=== PATIENT | female | born 1970 | race Caucasian/White ===

== ENCOUNTER 2018-11-15 01:39 | Inpatient (IN) | payer MEDICAID ==
[~2018-11-15] VITALS: Ht 172.7 cm; Wt 86.4 kg
--- NOTE | 2018-11-15 01:53 | NUR ---
Call placed to poison control, spoke with "Melba", recommended fluids, glucagon if needed, EKG, toxicology, 6 hours of observation from time of ingestions
--- NOTE | 2018-11-15 02:00 | NUR ---
Mother of the patient called the ER and stated that in addition to atenolol, patient took 10# 50mg Trazodone, and "left a suicide note" Addendum: 11/15/18 at 0201 by SACHIN endorsed to ERP
[2018-11-15] MEDS ORDERED: ATEN-169 PO (02:03)
[2018-11-15 02:49] LABS: URINE HCG NEGATIVE (NEG)
[2018-11-15 03:01] LABS: URINE AMPHETAMINE SCREEN NEGATIVE (Neg); URINE BARBITUATE SCREEN NEGATIVE (Neg); URINE BENZODIAZEPINES SCREEN NEGATIVE (Neg); URINE CANNABINOID SCREEN POSITIVE (Neg); URINE COCAINE SCREEN NEGATIVE (Neg); URINE METHADONE SCREEN NEGATIVE (Neg); URINE OPIATE SCREEN NEGATIVE (Neg); URINE PHENCYCLIDINE SCREEN NEGATIVE (Neg)
[2018-11-15 03:05] LABS: CLARITY,URINE CLEAR (Clear); COLOR,URINE YELLOW (Yellow); GLUCOSE, URINE NEGATIVE (Neg); KETONES,URINE NEGATIVE (Neg); LEUKOCYTE ESTERASE ,URINE NEGATIVE (Neg); NITRITES, URINE NEGATIVE (Neg); OCCULT BLOOD,URINE TRACE-INTACT (Neg); PROTEIN,URINE NEGATIVE (Neg); UROBILINOGEN,URINE 0.2 E.U/dL (0.2-1.0)
[2018-11-15 03:11] LABS: UA COLLECTION TYPE CLN CATCH MIDSTREAM
[2018-11-15 03:12] LABS: BACTERIA,URINE NONE SEEN /HPF (Neg); RBC,URINE 0-2 /HPF (0-2); SQUAMOUS EPITHELIAL CELL,UR FEW /LPF (FEW); WBC,URINE NONE SEEN /HPF (0-4)
[2018-11-15] MEDS ORDERED: normal saline 1000ml 1,000 ML IV ONE ×2 (03:15→04:25)
[2018-11-15 03:18] LABS: BASOPHILS % (AUTO) 0.6 % (0-1); EOSINOPHILS # (AUTO) 0.1 X10'3 (0-0.9); EOSINOPHILS % (AUTO) 2.1 % (0-6); HEMATOCRIT 36.8 % (35.0-45.0); HEMOGLOBIN 12.4 g/dl (12.0-16.0); LYMPHOCYTES # (AUTO) 1.4 X10'3 (1.1-4.8); LYMPHOCYTES % (AUTO) 35.8 % (21-51); MEAN CORPUSCULAR HEMOGLOBIN 32.9 PG (27.0-31.0); MEAN CORPUSCULAR HGB CONC 33.6 % (33.0-36.5); MEAN CORPUSCULAR VOLUME 97.8 FL (78-98); MONOCYTES # (AUTO) 0.3 X10'3 (0-0.9); MONOCYTES % (AUTO) 8.1 % (2-12); NEUTROPHILS # (AUTO) 2.2 X10'3 (1.8-7.7); NEUTROPHILS % (AUTO) 53.4 % (42-75); PLATELET COUNT 70 X10'3 (140-440); RED BLOOD COUNT 3.76 X10'6 (4.20-5.60); RED CELL DISTRIBUTION WIDTH 13.9 % (11.5-14.5)
[2018-11-15 03:49] LABS: ALANINE AMINOTRANSFERASE 32 U/L (12-78); ALBUMIN 3.1 G/DL (3.4-5.0); ALBUMIN/GLOBULIN RATIO 0.6 (1.1-1.5); ALKALINE PHOSPHATASE 114 IU/L (46-116); ANION GAP 13 (8-16); ASPARTATE AMINO TRANSFERASE 67 U/L (10-37); BILIRUBIN,TOTAL 1.5 MG/DL (0.1-1.0); BLOOD UREA NITROGEN 10 MG/DL (7-18); BUN/CREATININE RATIO 14.9 (6.6-38.0); CALCIUM 8.2 MG/DL (8.5-10.1); CHLORIDE 102 MMOL/L (99-107); CREATININE 0.67 MG/DL (0.40-0.90); ETHANOL 0.179 GM/DL (0.0-0.010); GLUCOSE 106 MG/DL (70-104); POTASSIUM 3.3 MMOL/L (3.5-5.1); SODIUM 138 MMOL/L (135-145); TOTAL CARBON DIOXIDE 22.7 MMOL/L (24-32); eGFR > 90 ML/MIN
[2018-11-15 03:56] LABS: ACETAMINOPHEN < 2.0 UG/ML (10-30)
--- NOTE | 2018-11-15 04:23 | NUR ---
ERP informed that fluids finished, and current assessment and vitals
[2018-11-15] MEDS ORDERED: glucagon, human recombinant 20 MG in dextrose 5%-water 180 ML IV SCH ×4 (04:35→06:45)
[2018-11-15] MEDS ORDERED: ondansetron/PF 4mg/2ml inj IV ONE (04:35)
[2018-11-15] MEDS ORDERED: calcium chloride inj. 1,000 MG in normal saline 100ml IV soln 90 ML IV ONE (04:35)
--- NOTE | 2018-11-15 05:00 | NUR ---
Pharmacy informed of new orders.
--- NOTE | 2018-11-15 05:02 | NUR ---
Rec'd call from poison control, updated on assessment, vitals, labs. Recommends initiating glucagon prior to attempting administration of calcium.
--- NOTE | 2018-11-15 05:21 | NUR ---
Glucagon initiated @ 3mg/hr
--- NOTE | 2018-11-15 05:40 | NUR ---
Glucagon increased to 4mg
--- NOTE | 2018-11-15 05:48 | NUR ---
home medications in pharmacy
--- NOTE | 2018-11-15 05:49 | NUR ---
Updated pharmacy on glucagon gtt
--- NOTE | 2018-11-15 06:15 | NUR ---
glucagon increased to 5
[2018-11-15] MEDS ORDERED: ondansetron/PF 4mg/2ml inj IV PRN (06:45)
[2018-11-15] MEDS ORDERED: dextrose 50%-water 50ml dispensing syringe IV PRN (06:45)
[2018-11-15] MEDS ORDERED: magnesium 4gm in 100ml NS 100 ML IV PRN (06:45)
[2018-11-15] MEDS ORDERED: acetaminophen 325mg tablet PO PRN ×2 (06:45)
[2018-11-15] MEDS ORDERED: potassium Cl 20 mEq SR tablet PO PRN ×2 (06:45)
[2018-11-15] MEDS ORDERED: magnesium hydroxide 30ml (MOM) UD suspension PO PRN (06:45)
[2018-11-15] MEDS ORDERED: magnesium 2GM in 50ml NS 50 ML IV PRN (06:45)
[2018-11-15] MEDS ORDERED: magnesium Cl slow-release 64mg tablet PO PRN (06:45)
[2018-11-15] MEDS ORDERED: potassium Cl 40MEQ/NS 500ml 500 ML IV PRN ×2 (06:45)
[2018-11-15] MEDS: K, MAG and/or Phos replacement - Verify level? MC SCH (08:00)
--- NOTE | 2018-11-15 08:10 | NUR ---
PTS GLUCONATE GTT TITRATED TO 6MG HR
[2018-11-15] MEDS: thiamine 100mg tablet PO SCH (08:31)
[2018-11-15] MEDS: folic acid 1mg tablet PO SCH (08:31)
[2018-11-15] MEDS: docusate sod 100mg capsule PO SCH ×2 (08:32→20:55)
[2018-11-15] MEDS: enoxaparin 40mg/0.4ml syringe SUBCUT SCH (08:37)
--- NOTE | 2018-11-15 09:30 | NUR ---
GLUCONATE GTT INCREASED TO 7MG/HR
--- NOTE | 2018-11-15 11:20 | NUR ---
PT GTT TITRATED DOWN TO 5MG/HR
--- NOTE | 2018-11-15 13:00 | NUR ---
PT GLUCAGON TURNED DOWN TO 3
--- NOTE | 2018-11-15 14:23 | NUR ---
PT REQUESTING TO USE THE BATHROOM. STANDBY ASSIST PT TO AMB TO BATHROOM. PT DENIES DIZZINESS OR ANY DIFFICULTIES. PT NOW BACK IN HER ROOM SITTING AT EDGE OF BED.
--- NOTE | 2018-11-15 14:30 | NUR ---
PT GLUCAGON RATE TURNED DOWN TO 1MG/HR
[2018-11-15] MEDS: normal saline 1000ml 1,000 ML IV SCH ×4 (14:33→22:44)
--- NOTE | 2018-11-15 15:08 | NUR ---
CALLED DR. ESCOBAR AND INFORMED PT BEING TITRATED OFF GLUCAGON PT BPS ARE MAINTAINING MAP >65. RECEIVED VO THAT PT CAN BE ADMITTED ON FLOOR WITH TELE AND SITTER. PT IV FLUIDS NS RATE TO DECREASE TO 75ML/HR.
--- NOTE | 2018-11-15 17:55 | NUR ---
REPORT ATTEMPTED, RN FROM NEXT SHIFT TO CALL FOR FIRST REPORT.
--- NOTE | 2018-11-15 18:30 | NUR ---
Patient in room PCU 3027. I have received report from alba Cornejo and had the opportunity to ask questions and assume patient care. Pt has shea on her and would like to keep it with her.
--- NOTE | 2018-11-15 18:35 | NUR ---
REPORTED TO TRACEE OSORIO PT HAS BETANCOURT AND NEEDS TO HAVE IT LOCKED UP.
[2018-11-15 19:00] VITALS: BP 119/55
[2018-11-15 23:00] VITALS: BP 125/60
[2018-11-16 03:00] VITALS: BP 121/54
[2018-11-16] MEDS: normal saline 1000ml 1,000 ML IV SCH ×2 (04:43→16:42)
[2018-11-16 05:07] LABS: BASOPHILS % (AUTO) 0.5 % (0-1); EOSINOPHILS # (AUTO) 0.1 X10'3 (0-0.9); EOSINOPHILS % (AUTO) 1.8 % (0-6); HEMATOCRIT 32.3 % (35.0-45.0); HEMOGLOBIN 10.9 g/dl (12.0-16.0); LYMPHOCYTES # (AUTO) 1.3 X10'3 (1.1-4.8); LYMPHOCYTES % (AUTO) 38.6 % (21-51); MEAN CORPUSCULAR HEMOGLOBIN 33.3 PG (27.0-31.0); MEAN CORPUSCULAR HGB CONC 33.8 % (33.0-36.5); MEAN CORPUSCULAR VOLUME 98.5 FL (78-98); MEAN PLATELET VOLUME 7.6 FL (7.4-10.4); MONOCYTES # (AUTO) 0.3 X10'3 (0-0.9); MONOCYTES % (AUTO) 8.7 % (2-12); NEUTROPHILS # (AUTO) 1.6 X10'3 (1.8-7.7); NEUTROPHILS % (AUTO) 50.4 % (42-75); PLATELET COUNT 72 X10'3 (140-440); RED BLOOD COUNT 3.28 X10'6 (4.20-5.60); RED CELL DISTRIBUTION WIDTH 14.2 % (11.5-14.5); WHITE BLOOD COUNT 3.3 X10'3 (4.5-11.0)
[2018-11-16 05:12] LABS: ALANINE AMINOTRANSFERASE 30 U/L (12-78); ALBUMIN 2.5 G/DL (3.4-5.0); ALBUMIN/GLOBULIN RATIO 0.6 (1.1-1.5); ALKALINE PHOSPHATASE 95 IU/L (46-116); ANION GAP 12 (8-16); ASPARTATE AMINO TRANSFERASE 57 U/L (10-37); BILIRUBIN,TOTAL 1.8 MG/DL (0.1-1.0); BLOOD UREA NITROGEN 14 MG/DL (7-18); BUN/CREATININE RATIO 16.7 (6.6-38.0); CALCIUM 8.3 MG/DL (8.5-10.1); CHLORIDE 109 MMOL/L (99-107); CREATININE 0.84 MG/DL (0.40-0.90); GLUCOSE 101 MG/DL (70-104); MAGNESIUM 1.2 MG/DL (1.5-2.4); PHOSPHORUS 3.1 MG/DL (2.3-4.5); POTASSIUM 3.8 MMOL/L (3.5-5.1); SODIUM 142 MMOL/L (135-145); TOTAL CARBON DIOXIDE 21.1 MMOL/L (24-32); TOTAL PROTEIN 6.6 G/DL (6.4-8.2); eGFR 72 ML/MIN
[2018-11-16 06:00] VITALS: BP 118/57
--- NOTE | 2018-11-16 06:34 | NUR ---
Problems reprioritized. Patient report given, questions answered & plan of care reviewed with TRACEE Kim.
--- NOTE | 2018-11-16 06:49 | NUR ---
Patient in room PCU 3027. I have received report from TRACEE RAZA and had the opportunity to ask questions and assume patient care.
[2018-11-16] MEDS: K, MAG and/or Phos replacement - Verify level? MC SCH (07:15)
--- NOTE | 2018-11-16 07:52 | NUR ---
DR. SLOAN NOTIFIED OF PLT 70 WITH LOVENOX ORDERED. STATES "GIVE THE LOVENOX".
[2018-11-16] MEDS: docusate sod 100mg capsule PO SCH (07:55)
[2018-11-16] MEDS: folic acid 1mg tablet PO SCH (07:55)
[2018-11-16] MEDS: thiamine 100mg tablet PO SCH (07:56)
[2018-11-16] MEDS: enoxaparin 40mg/0.4ml syringe SUBCUT SCH (07:57)
[2018-11-16 11:00] VITALS: BP 129/70
[2018-11-16] MEDS ORDERED: thiamine tablet PO (16:09)
[2018-11-16] MEDS ORDERED: FOLI1TAB16 PO (16:09)
--- NOTE | 2018-11-16 17:01 | NUR ---
Pt's been referred to [facility] for 5150 Eval, she has a 15 y/o son @ home & 13 y/o daughter in the care of a mt. aunt. To comply w/Mandated reporting law, SS contacted [employer] & faxed a [phone] to Sofy ORTEGA as pt has 2 minor children who may have no caregiver when pt is 5150.
--- NOTE | 2018-11-16 18:28 | NUR ---
Problems reprioritized. Patient report given, questions answered & plan of care reviewed with TRACEE ALVAREZ.
--- NOTE | 2018-11-16 19:50 | NUR ---
Patient escorted to ED overflow, belongings accompanied
--- NOTE | 2018-11-17 09:50 | NUR ---
Pt's d/c'd to ED overflow yesterday romain, pending [facility] eval. SS referral closed.
== END 2018-11-16 20:00 | disposition home or self-care (01) | DRG 812 ==
LOC: ER 01:41 → ED HOLD 06:44 → EDBEDREQSVC 17:08 → EDBEDREQTM 17:08 → PCU 3S 18:28
PROVIDERS: ADMIT Internal Medicine Critical Care Medicine; ATTEND Internal Medicine Critical Care Medicine
DX: T44.7X2A Poisoning by beta-adrenoreceptor antagonists, intentional self-harm, initial encounter (principal); I45.81 Long QT syndrome; E78.00 Pure hypercholesterolemia, unspecified; E78.5 Hyperlipidemia, unspecified; F10.129 Alcohol abuse with intoxication, unspecified; F31.9 Bipolar disorder, unspecified; I10 Essential (primary) hypertension; T43.212A Poisoning by selective serotonin and norepinephrine reuptake inhibitors, intentional self-harm, initial encounter; Z88.2 Allergy status to sulfonamides; Y90.6 Blood alcohol level of 120-199 mg/100 ml; Y92.89 Other specified places as the place of occurrence of the external cause
CPT/HCPCS: 36415; 80053; 80305; 80320; 80329; 81001; 81025; 82948; 83735; 84100; 84439; 84443; 84480; 85025; 87070; 93005; 96365; 96368; 96375; 99291; 99292; G0378; J1610; J1650; J2405; J7030; J7060

== ENCOUNTER 2018-11-16 20:02 | Emergency (ER) | payer MEDICAID ==
[~2018-11-16 20:02] MED LIST: ATEN-169 PO; FOLI1TAB16 PO; thiamine tablet PO
--- NOTE | 2018-11-16 20:10 | NUR ---
Recieved report from PCU nurse Hortencia EASLEY, will asume patient care.
--- NOTE | 2018-11-16 20:20 | NUR ---
Patient arrived to floor via wheel chair. All belongings accompanied patient. Patient disrobed and dressed to the green gowns. Explain to patient all her belongings will be stored away in a safe. Patient in no distress.
[2018-11-16 20:29] VITALS: BP 139/80
--- NOTE | 2018-11-16 20:42 | NUR ---
VSS. BP 139/80 heart rate of 73. Patient calm and is waiting for the next plan. Explain to patient that we are waiting on the ER doctor for orders and the next step would be a telesych eval. Patient states understanding. Laying in bed. No issues at this time. No SI.
--- NOTE | 2018-11-16 20:55 | NUR ---
MADY massey in to see patient.
--- NOTE | 2018-11-16 21:32 | NUR ---
Patient most likely will be discharged tonight. No telepsych needed per Dr. Gonzalez.
--- NOTE | 2018-11-16 22:24 | NUR ---
Discharge ready. Patient is currently waiting for her sister to pick her up. Perscription handed to patient. Patient's medication in pharmacy picked up and handed it to her. Patient is dressed, all belongings with patient. Discharged summary printed and a list of help list is provided to her. Patient states understanding of following up with her primary care provided as soon as possible. Patient denies suicidal ideation or intent at this time. Agreed to remain safe from harm.
--- NOTE | 2018-11-16 23:07 | NUR ---
Patient escorted via ambulatory out to the lobby, her sister is here to pick her up. Agreed to remain safe at home. All belongings sent with patient.
== END 2018-11-16 23:15 | disposition home or self-care (01) ==
LOC: ER 20:02
DX: F32.9 Major depressive disorder, single episode, unspecified (principal); E78.00 Pure hypercholesterolemia, unspecified; Z88.2 Allergy status to sulfonamides; Z79.899 Other long term (current) drug therapy
CPT/HCPCS: 99281; 99284

== ENCOUNTER 2020-03-10 10:25 | Day surgery (SDC) | payer MEDICAID ==
[2020-03-06 14:24] LABS: CLARITY,URINE SLIGHTLY CLOUDY (Clear); COLOR,URINE YELLOW (Yellow); GLUCOSE, URINE NEGATIVE (Neg); KETONES,URINE NEGATIVE (Neg); LEUKOCYTE ESTERASE ,URINE NEGATIVE (Neg); NITRITES, URINE NEGATIVE (Neg); OCCULT BLOOD,URINE LARGE (Neg); PROTEIN,URINE NEGATIVE (Neg)
[2020-03-06 14:26] LABS: UA COLLECTION TYPE CLN CATCH MIDSTREAM
[2020-03-06 14:31] LABS: BASOPHILS % (AUTO) 0.7 % (0-1); EOSINOPHILS # (AUTO) 0.1 X10'3 (0-0.9); EOSINOPHILS % (AUTO) 1.5 % (0-6); LYMPHOCYTES # (AUTO) 1.1 X10'3 (1.1-4.8); MEAN CORPUSCULAR HEMOGLOBIN 32.4 PG (27.0-31.0); MEAN CORPUSCULAR HGB CONC 33.6 g/dL (33.0-36.5); MEAN CORPUSCULAR VOLUME 96.4 FL (78-98); MEAN PLATELET VOLUME 7.1 FL (7.4-10.4); MONOCYTES # (AUTO) 0.4 X10'3 (0-0.9); MONOCYTES % (AUTO) 6.4 % (2-12); NEUTROPHILS # (AUTO) 4.4 X10'3 (1.8-7.7); NEUTROPHILS % (AUTO) 73.4 % (42-75); PRE OP HEMATOCRIT 41.8 % (35.0-45.0); PRE OP PLATELET COUNT 154 X10'3 (140-440); RED BLOOD COUNT 4.33 X10'6 (4.20-5.60); RED CELL DISTRIBUTION WIDTH 15.7 % (11.5-14.5)
[2020-03-06 14:34] LABS: MUCUS STRANDS NONE SEEN /LPF (Neg); SQUAMOUS EPITHELIAL CELL,UR MODERATE /LPF (FEW)
[2020-03-06 14:34] LABS: ALBUMIN 3.3 G/DL (3.4-5.0); ALBUMIN/GLOBULIN RATIO 0.8 (1.1-1.5); ALKALINE PHOSPHATASE 101 IU/L (46-116); BLOOD UREA NITROGEN 11 MG/DL (7-18); BUN/CREATININE RATIO 16.7 (6.6-38.0); CALCIUM 8.3 MG/DL (8.5-10.1); CHLORIDE 106 MMOL/L (99-107); CREATININE 0.66 MG/DL (0.40-0.90); PRE OP ALT 24 U/L (30-65); PRE OP ANION GAP 7 (8-16); PRE OP AST 42 U/L (10-37); PRE OP BILIRUB, TOTAL 0.8 MG/DL (0.0-1.0); PRE OP GLUCOSE 140 MG/DL (70-104); PRE OP SODIUM 139 MMOL/L (135-145); TOTAL CARBON DIOXIDE 26.1 MMOL/L (24-32); TOTAL PROTEIN 7.6 G/DL (6.4-8.2); eGFR > 90 ML/MIN
[2020-03-06 14:35] LABS: BACTERIA,URINE FEW /HPF (Neg); RBC,URINE 20-50 /HPF (0-2); WBC,URINE NONE SEEN /HPF (0-4)
[~2020-03-10] VITALS: Ht 172.7 cm; Wt 98.6 kg
[2020-03-10] VITALS (8 sets, daily range): BP systolic 116–133; BP diastolic 65–74
[~2020-03-10 10:25] MED LIST changes: +CLON-528 PO; +DOCUMENT DATE & TIME OF BETA-BLOCKER PO ONE; -FOLI1TAB16 PO; +LEVO25TA7 PO; +cefazolin/dext.iso 2gm/100ml 100 ML IV ONE; +famotidine 20mg tablet PO ONE; +ringers solution, lacted 1,000 ML IV SCH; -thiamine tablet PO
[2020-03-10] MEDS ORDERED: ringers solution, lacted 1,000 ML IV SCH (10:49)
[2020-03-10] MEDS ORDERED: morphine 2 MG/ML inj. syringe IV PRN (10:50)
[2020-03-10] MEDS ORDERED: ondansetron/PF 4mg/2ml inj IV PRN (10:50)
[2020-03-10] MEDS ORDERED: proCHLORperazine 10 MG/2 ml inj IV PRN (10:50)
[2020-03-10] MEDS ORDERED: meperidine/PF 25mg/ml syringe IV PRN ×3 (10:50)
[2020-03-10] MEDS ORDERED: morphine 4 MG/ML inj SYRINge IV PRN (10:50)
[2020-03-10] MEDS ORDERED: dexamethasone sod phosphate 10mg/ml inj ONE (13:00)
[2020-03-10] MEDS ORDERED: sevoflurane 250ml liquid IH ONE (13:00)
[2020-03-10] MEDS ORDERED: ondansetron/PF 4mg/2ml inj ONE (13:00)
[2020-03-10] MEDS ORDERED: fentaNYL/PF 50MCG/1 ML 2ML syringe ONE (13:03)
[2020-03-10] MEDS ORDERED: MIDAZolam 5mg/5ml vial ONE (13:03)
[2020-03-10] MEDS ORDERED: bacitracin 15gm ointment TP ONE (13:03)
[2020-03-10] MEDS ORDERED: ROPIVAcaine 0.5% (5mg/ml) 30ml vial ONE (13:08)
[2020-03-10] MEDS ORDERED: LIDOcaine 2% (20mg/ml) 5ml vial ONE (13:20)
[2020-03-10] MEDS ORDERED: propofol inj 20 ML IV ONE (13:20)
[2020-03-10] MEDS ORDERED: BUPIVAcaine/PF 7.5mg/ml (0.75%) 10ml vial ONE (14:48)
--- NOTE | 2020-03-10 15:08 | NUR ---
POST OP ACCU CHECK 102. AWARE Addendum: 03/10/20 at 1509 by Mark Ambriz RN, RN Amended: Links added.
--- NOTE | 2020-03-10 15:55 | NUR ---
D/C FROM PACU I HAVE REVIEWED D/C INSTRUCTIONS WITH PATIENT AND FAMILY AND THEY HAVE VERBALIZED UNDERSTANDING. PATIENT D/C HOME WITH ALL BELONGINGS AND FAMILY GAVE TRANSPORT HOME. INSTRUCTED HEAVILY ON ELEVATION OF RIGHT LE. Addendum: 03/10/20 at 1600 by Mark Ambriz RN, RN Amended: Links added.
== END 2020-03-10 15:55 | disposition home or self-care (01) ==
LOC: PAS 10:25
PROVIDERS: ATTEND Podiatrist Foot & Ankle Surgery
DX: T84.84XA Pain due to internal orthopedic prosthetic devices, implants and grafts, initial encounter (principal); M20.11 Hallux valgus (acquired), right foot; M21.611 Bunion of right foot; Y92.9 Unspecified place or not applicable; Y83.8 Other surgical procedures as the cause of abnormal reaction of the patient, or of later complication, without mention of misadventure at the time of the procedure; Z11.59 Encounter for screening for other viral diseases
CPT/HCPCS: 20680; 28297; 36415; 73620; 76000; 80053; 81001; 82948; 85025; 87635; A6223; C1713; J1100; J2001; J2250; J2405; J2704; J3010; J3490; J7120; A4618; A6253; A6449; A7000; J2795

== ENCOUNTER 2021-09-19 18:10 | Emergency (ER) | payer MEDICAID ==
[~2021-09-19] VITALS: Ht 172.7 cm; Wt 101.9 kg
[~2021-09-19 18:10] MED LIST changes: -DOCUMENT DATE & TIME OF BETA-BLOCKER PO ONE; -cefazolin/dext.iso 2gm/100ml 100 ML IV ONE; -famotidine 20mg tablet PO ONE; -ringers solution, lacted 1,000 ML IV SCH
[2021-09-19 18:46] VITALS: BP 110/63
== END 2021-09-19 23:55 | disposition left against medical advice (07) ==
LOC: ER 18:11
DX: M79.89 Other specified soft tissue disorders (principal); Z53.21 Procedure and treatment not carried out due to patient leaving prior to being seen by health care provider

== ENCOUNTER 2021-11-17 16:45 | Inpatient (IN) | payer MEDICAID ==
[~2021-11-17] VITALS: Ht 172.7 cm; Wt 97.7 kg
[2021-11-17] MEDS ORDERED: ondansetron/PF 4mg/2ml inj IV ONE (17:35)
[2021-11-17] MEDS ORDERED: normal saline 1000ML IV soln IVB ONE (17:40)
[2021-11-17 18:03] LABS: BASOPHILS % (AUTO) 0.4 % (0-1); EOSINOPHILS % (AUTO) 0.3 % (0-6); LYMPHOCYTES # (AUTO) 0.7 X10'3 (1.1-4.8); LYMPHOCYTES % (AUTO) 14.7 % (21-51); MEAN CORPUSCULAR HGB CONC 34.1 g/dL (33.0-36.5); MEAN CORPUSCULAR VOLUME 105.6 FL (78-98); MEAN PLATELET VOLUME 9.7 FL (7.4-10.4); MONOCYTES # (AUTO) 0.4 X10'3 (0-0.9); MONOCYTES % (AUTO) 9.3 % (2-12); NEUTROPHILS # (AUTO) 3.5 X10'3 (1.8-7.7); NEUTROPHILS % (AUTO) 75.3 % (42-75); RED BLOOD COUNT 1.88 X10'6 (4.20-5.60); RED CELL DISTRIBUTION WIDTH 14.7 % (11.5-14.5); WHITE BLOOD COUNT 4.6 X10'3 (4.5-11.0)
[2021-11-17 18:20] LABS: HEMATOCRIT 19.9 % (35.0-45.0); HEMOGLOBIN 6.8 g/dl (12.0-16.0); PLATELET COUNT 46 X10'3 (140-440)
[2021-11-17 18:22] LABS: ALANINE AMINOTRANSFERASE 19 U/L (12-78); ALBUMIN 2.2 G/DL (3.4-5.0); ALBUMIN/GLOBULIN RATIO 0.5 (1.1-1.5); ALKALINE PHOSPHATASE 74 IU/L (46-116); ANION GAP 6 (8-16); ASPARTATE AMINO TRANSFERASE 65 U/L (10-37); BILIRUBIN,TOTAL 2.9 MG/DL (0.1-1.0); BLOOD UREA NITROGEN 45 MG/DL (7-18); BUN/CREATININE RATIO 47.4 (6.6-38.0); CHLORIDE 97 MMOL/L (99-107); CREATININE 0.95 MG/DL (0.40-0.90); GLUCOSE 383 MG/DL (70-104); LIPASE 690 U/L (73-393); SODIUM 136 MMOL/L (135-145); TOTAL CARBON DIOXIDE 32.6 MMOL/L (24-32); TOTAL PROTEIN 6.8 G/DL (6.4-8.2); eGFR 62 ML/MIN
[2021-11-17 18:25] LABS: POTASSIUM 2.6 MMOL/L (3.5-5.1)
[2021-11-17] MEDS ORDERED: normal saline 1000ML IV soln IV ONE (18:25)
[2021-11-17] MEDS ORDERED: octreotide inj. 1,250 MCG in normal saline 250ml IV soln 243.75 ML IV ONE (18:25)
[2021-11-17] MEDS ORDERED: famotidine/PF 10 mg/ml inj IV ONE (18:25)
[2021-11-17] MEDS ORDERED: pantoprazole 40MG/D5 100ML BAG 100 ML IV ONE (18:25)
[2021-11-17] MEDS ORDERED: potassium Cl 10 mEq/100mL bag IV ONE (18:30)
[2021-11-17] MEDS ORDERED: pantoprazole 40MG/NS 100ML BAG 100 ML IV ONE (18:35)
[2021-11-17 18:44] LABS: ETHANOL < 0.010 GM/DL (0.0-0.010)
[2021-11-17] MEDS ORDERED: ondansetron/PF 4mg/2ml inj IV PRN (19:30)
[2021-11-17] MEDS ORDERED: magnesium hydroxide 30ml (MOM) UD suspension PO PRN (19:30)
[2021-11-17] MEDS ORDERED: PERFLUTREN PROTEIN-A MICROSPHR (Optison) 0.22 MG/ML 3ML VIAL IV PRN (19:30)
[2021-11-17] MEDS ORDERED: acetaminophen 325mg tablet PO PRN (19:30)
[2021-11-17] MEDS ORDERED: mag hydrox/Alum hydrox/simeth 30ml oral suspension PO PRN (19:30)
[2021-11-17] MEDS ORDERED: magnesium 2GM in 50ml NS 50 ML IV PRN (19:30)
[2021-11-17] MEDS ORDERED: magnesium 4gm in 100ml NS 100 ML IV PRN (19:30)
[2021-11-17] MEDS ORDERED: LORazepam 2 mg/ml vial IV PRN (19:35)
[2021-11-17] MEDS: K and/or MAG REPLACEMENT MC SCH (20:00)
[2021-11-17 20:06] VITALS: BP 103/52
[2021-11-17 20:21] VITALS: BP 109/55
[2021-11-17 20:21] LABS: MAGNESIUM 1.5 MG/DL (1.5-2.4)
[2021-11-17 20:36] VITALS: BP 115/59
[2021-11-17] MEDS: potassium CL 10mEq/100ml bag 100 ML IV PRN ×2 (20:50→22:09)
[2021-11-17] MEDS: docusate sod 100mg capsule PO SCH (21:22)
[2021-11-17] MEDS ORDERED: ALBU8HFA IH (21:34)
[2021-11-17] MEDS: thiamine 100mg/ml 2ml inj. IV SCH (21:34)
[2021-11-17 21:36] VITALS: BP 108/59
[2021-11-17] MEDS ORDERED: albuterol 2.5 MG/3 ML nebule NEB PRN (22:10)
[2021-11-17 22:36] VITALS: BP 118/62
[2021-11-17 23:18] VITALS: BP 118/62
[2021-11-18] VITALS (13 sets, daily range): BP systolic 106–137; BP diastolic 59–74
[2021-11-18] MEDS: pantoprazole 40MG/NS 100ML BAG 100 ML IV SCH ×6 (01:00→20:50)
[2021-11-18 03:46] LABS: BASOPHILS % (AUTO) 0.5 % (0-1); EOSINOPHILS # (AUTO) 0.1 X10'3 (0-0.9); EOSINOPHILS % (AUTO) 1.7 % (0-6); LYMPHOCYTES # (AUTO) 0.7 X10'3 (1.1-4.8); LYMPHOCYTES % (AUTO) 23.1 % (21-51); MEAN CORPUSCULAR HEMOGLOBIN 35.6 PG (27.0-31.0); MEAN CORPUSCULAR HGB CONC 34.3 g/dL (33.0-36.5); MEAN PLATELET VOLUME 8.8 FL (7.4-10.4); MONOCYTES # (AUTO) 0.3 X10'3 (0-0.9); MONOCYTES % (AUTO) 10.3 % (2-12); NEUTROPHILS % (AUTO) 64.4 % (42-75); RED BLOOD COUNT 1.65 X10'6 (4.20-5.60); RED CELL DISTRIBUTION WIDTH 15.2 % (11.5-14.5); WHITE BLOOD COUNT 3.1 X10'3 (4.5-11.0)
[2021-11-18 04:01] LABS: ALBUMIN 1.8 G/DL (3.4-5.0); ALBUMIN/GLOBULIN RATIO 0.5 (1.1-1.5); ALKALINE PHOSPHATASE 58 IU/L (46-116); ANION GAP 5 (8-16); ASPARTATE AMINO TRANSFERASE 51 U/L (10-37); BILIRUBIN,TOTAL 2.4 MG/DL (0.1-1.0); BLOOD UREA NITROGEN 45 MG/DL (7-18); BUN/CREATININE RATIO 50.6 (6.6-38.0); CALCIUM 8.1 MG/DL (8.5-10.1); CHLORIDE 101 MMOL/L (99-107); CREATININE 0.89 MG/DL (0.40-0.90); GLUCOSE 288 MG/DL (70-104); LIPASE 349 U/L (73-393); MAGNESIUM 1.3 MG/DL (1.5-2.4); POTASSIUM 3.1 MMOL/L (3.5-5.1); SODIUM 137 MMOL/L (135-145); TOTAL CARBON DIOXIDE 31.4 MMOL/L (24-32); TOTAL PROTEIN 5.2 G/DL (6.4-8.2); eGFR 67 ML/MIN
[2021-11-18 04:07] LABS: HEMATOCRIT 17.2 % (35.0-45.0); HEMOGLOBIN 5.9 g/dl (12.0-16.0); PLATELET COUNT 49 X10'3 (140-440)
[2021-11-18 04:25] LABS: ALANINE AMINOTRANSFERASE 18 U/L (12-78)
[2021-11-18 05:50] LABS: CLARITY,URINE SLIGHTLY CLOUDY (Clear); COLOR,URINE YELLOW (Yellow); GLUCOSE, URINE >=1000 mg/dl (Neg); KETONES,URINE NEGATIVE (Neg); LEUKOCYTE ESTERASE ,URINE SMALL (Neg); NITRITES, URINE NEGATIVE (Neg); OCCULT BLOOD,URINE NEGATIVE (Neg); PH,URINE 5.5 (4.8-8.0); PROTEIN,URINE NEGATIVE (Neg)
[2021-11-18 05:56] LABS: URINE HCG NEGATIVE (NEG)
[2021-11-18 06:01] LABS: UA COLLECTION TYPE URINAL
[2021-11-18 06:03] LABS: URINE AMPHETAMINE SCREEN NEGATIVE (Neg); URINE BARBITUATE SCREEN NEGATIVE (Neg); URINE BENZODIAZEPINES SCREEN NEGATIVE (Neg); URINE CANNABINOID SCREEN NEGATIVE (Neg); URINE COCAINE SCREEN NEGATIVE (Neg); URINE METHADONE SCREEN NEGATIVE (Neg); URINE OPIATE SCREEN NEGATIVE (Neg); URINE PHENCYCLIDINE SCREEN NEGATIVE (Neg)
[2021-11-18 06:08] LABS: BACTERIA,URINE 4+ /HPF (Neg); MUCUS STRANDS NONE SEEN /LPF (Neg); RBC,URINE NONE SEEN /HPF (0-2); SQUAMOUS EPITHELIAL CELL,UR FEW /LPF (FEW)
[2021-11-18] MEDS: normal saline 1000ml 1,000 ML IV SCH (06:56)
--- NOTE | 2021-11-18 07:53 | NUR ---
tried to call report again as per mel correa in icu the nurse just got ed patient and nurse is busy ,they want other admit hold to go up not miss jeff at this time ,will let nguyen charge nurse.
[2021-11-18] MEDS: docusate sod 100mg capsule PO SCH ×2 (08:00→19:45)
[2021-11-18] MEDS: thiamine 100mg/ml 2ml inj. IV SCH ×3 (08:27→21:02)
--- NOTE | 2021-11-18 08:48 | NUR ---
Attempted to receive report from ED Nurse was busy with another pt. She will call back.
[2021-11-18] MEDS: K and/or MAG REPLACEMENT MC SCH ×2 (08:49→20:24)
[2021-11-18 09:13] LABS: OCCULT BLOOD STOOL POSITIVE (Neg)
--- NOTE | 2021-11-18 09:20 | NUR ---
Received report from TRACEE Winston
[2021-11-18 09:49] LABS: MEAN CORPUSCULAR HEMOGLOBIN 34.7 PG (27.0-31.0); MEAN CORPUSCULAR HGB CONC 34.4 g/dL (33.0-36.5); MEAN CORPUSCULAR VOLUME 100.8 FL (78-98); MEAN PLATELET VOLUME 8.3 FL (7.4-10.4); RED BLOOD COUNT 1.87 X10'6 (4.20-5.60); RED CELL DISTRIBUTION WIDTH 17.8 % (11.5-14.5); WHITE BLOOD COUNT 2.7 X10'3 (4.5-11.0)
[2021-11-18 09:52] LABS: HEMOGLOBIN 6.5 g/dl (12.0-16.0)
[2021-11-18 09:53] LABS: HEMATOCRIT 18.9 % (35.0-45.0); PLATELET COUNT 44 X10'3 (140-440)
[2021-11-18] MEDS ORDERED: multivitamins, therapeutics tablet PO SCH (10:15)
[2021-11-18] MEDS: folic acid 1mg tablet PO SCH (10:15)
[2021-11-18] MEDS ORDERED: diphenhydrAMINE 50 mg/ml inj ONE (10:20)
[2021-11-18] MEDS ORDERED: fentaNYL/PF 50MCG/1 ML 2ML syringe ONE (10:20)
[2021-11-18] MEDS ORDERED: MIDAZolam 1 MG/ML 5ML VIAL ONE (10:20)
--- NOTE | 2021-11-18 18:37 | NUR ---
Problems reprioritized. Patient report given, questions answered & plan of care reviewed with Sonia EASLEYT.
[2021-11-18] MEDS: thiamine 100mg tablet PO SCH (19:45)
[2021-11-18 19:52] LABS: HEMATOCRIT 23.7 % (35.0-45.0); HEMOGLOBIN 8.2 g/dl (12.0-16.0); MEAN CORPUSCULAR HEMOGLOBIN 33.7 PG (27.0-31.0); MEAN CORPUSCULAR HGB CONC 34.4 g/dL (33.0-36.5); MEAN CORPUSCULAR VOLUME 97.9 FL (78-98); MEAN PLATELET VOLUME 8.2 FL (7.4-10.4); PLATELET COUNT 60 X10'3 (140-440); RED BLOOD COUNT 2.42 X10'6 (4.20-5.60); RED CELL DISTRIBUTION WIDTH 19.3 % (11.5-14.5); WHITE BLOOD COUNT 3.9 X10'3 (4.5-11.0)
[2021-11-18] MEDS ORDERED: potassium Cl 20 mEq SR tablet PO PRN ×3 (20:20→22:15)
[2021-11-18] MEDS ORDERED: potassium Cl 40MEQ/1/2NS 520ml 520 ML IV PRN ×2 (20:20)
[2021-11-18] MEDS ORDERED: potassium CL 10mEq/100ml bag 100 ML IV PRN ×2 (20:30→22:15)
[2021-11-18] MEDS ORDERED: magnesium 4gm in 100ml NS 100 ML IV PRN (22:15)
[2021-11-18] MEDS ORDERED: magnesium 2GM in 50ml NS 50 ML IV PRN (22:15)
[2021-11-18] MEDS: magnesium Cl slow-release 64mg tablet PO PRN (22:33)
--- NOTE | 2021-11-18 22:35 | NUR ---
K+3.1 and Mag 1.3, both replaced per protocol. am labs to recheck levels.
[2021-11-19] MEDS: pantoprazole 40MG/NS 100ML BAG 100 ML IV SCH ×3 (01:01→11:00)
[2021-11-19 02:00] VITALS: BP 118/61
[2021-11-19] MEDS: potassium Cl 20 mEq SR tablet PO PRN ×4 (02:32→19:40)
[2021-11-19 06:00] VITALS: BP 130/65
--- NOTE | 2021-11-19 06:32 | NUR ---
Problems reprioritized. Patient report given, questions answered & plan of care reviewed with TRACEE Bell. Protonix infusing.
[2021-11-19 07:59] LABS: HEMATOCRIT 22.8 % (35.0-45.0); HEMOGLOBIN 7.8 g/dl (12.0-16.0); MEAN PLATELET VOLUME 8.4 FL (7.4-10.4); PLATELET COUNT 55 X10'3 (140-440); RED BLOOD COUNT 2.28 X10'6 (4.20-5.60); RED CELL DISTRIBUTION WIDTH 19.5 % (11.5-14.5); WHITE BLOOD COUNT 3.1 X10'3 (4.5-11.0)
[2021-11-19] MEDS: K and/or MAG REPLACEMENT MC SCH ×2 (08:00→20:00)
[2021-11-19] MEDS ORDERED: K and/or MAG REPLACEMENT MC SCH (08:00)
[2021-11-19 08:48] LABS: ALANINE AMINOTRANSFERASE 26 U/L (12-78); ALBUMIN 2.2 G/DL (3.4-5.0); ALBUMIN/GLOBULIN RATIO 0.6 (1.1-1.5); ALKALINE PHOSPHATASE 65 IU/L (46-116); ANION GAP 7 (8-16); ASPARTATE AMINO TRANSFERASE 85 U/L (10-37); BILIRUBIN,TOTAL 3.1 MG/DL (0.1-1.0); BLOOD UREA NITROGEN 31 MG/DL (7-18); BUN/CREATININE RATIO 37.8 (6.6-38.0); CALCIUM 7.2 MG/DL (8.5-10.1); CHLORIDE 108 MMOL/L (99-107); CREATININE 0.82 MG/DL (0.40-0.90); GLUCOSE 156 MG/DL (70-104); LIPASE 319 U/L (73-393); MAGNESIUM 1.5 MG/DL (1.5-2.4); POTASSIUM 3.2 MMOL/L (3.5-5.1); SODIUM 144 MMOL/L (135-145); TOTAL CARBON DIOXIDE 28.7 MMOL/L (24-32); TOTAL PROTEIN 5.9 G/DL (6.4-8.2); eGFR 73 ML/MIN
[2021-11-19] MEDS: thiamine 100mg tablet PO SCH ×2 (09:47→19:40)
[2021-11-19] MEDS: multivitamins, therapeutics tablet PO SCH (09:48)
[2021-11-19] MEDS: docusate sod 100mg capsule PO SCH ×2 (09:48→19:40)
[2021-11-19] MEDS: folic acid 1mg tablet PO SCH (09:48)
[2021-11-19] MEDS: thiamine 100mg/ml 2ml inj. IV SCH ×3 (09:48→21:00)
[2021-11-19 11:00] VITALS: BP 124/55
--- NOTE | 2021-11-19 11:48 | NUR ---
Patient in room PCU 3012. I have received report from TRACEE Bell and had the opportunity to ask questions and assume patient care. Patient awake in bed and in no acute distress.
[2021-11-19 12:07] LABS: HEMATOCRIT 23.1 % (35.0-45.0); HEMOGLOBIN 7.9 g/dl (12.0-16.0); MEAN CORPUSCULAR HEMOGLOBIN 34.1 PG (27.0-31.0); MEAN CORPUSCULAR HGB CONC 34.1 g/dL (33.0-36.5); MEAN CORPUSCULAR VOLUME 100.2 FL (78-98); MEAN PLATELET VOLUME 8.1 FL (7.4-10.4); PLATELET COUNT 62 X10'3 (140-440); RED BLOOD COUNT 2.31 X10'6 (4.20-5.60); RED CELL DISTRIBUTION WIDTH 19.9 % (11.5-14.5); WHITE BLOOD COUNT 3.5 X10'3 (4.5-11.0)
--- NOTE | 2021-11-19 12:24 | NUR ---
Met with patient for alcohol use and to see if patient was interested in resources for treatment options. Patient would like to go an outpatient treatment facility. I gave patient [facility] number so she can call and get a list of outpatient programs. I also gave patient my card so she could call if needed.
[2021-11-19 15:00] VITALS: BP 112/62
[2021-11-19] MEDS: levoFLOXACIN 500mg tablet PO SCH (15:42)
[2021-11-19 17:44] LABS: HEMATOCRIT 23.1 % (35.0-45.0); HEMOGLOBIN 7.8 g/dl (12.0-16.0); MEAN CORPUSCULAR HEMOGLOBIN 33.9 PG (27.0-31.0); MEAN CORPUSCULAR HGB CONC 33.9 g/dL (33.0-36.5); MEAN CORPUSCULAR VOLUME 99.9 FL (78-98); PLATELET COUNT 63 X10'3 (140-440); RED BLOOD COUNT 2.31 X10'6 (4.20-5.60); RED CELL DISTRIBUTION WIDTH 19.6 % (11.5-14.5); WHITE BLOOD COUNT 3.2 X10'3 (4.5-11.0)
[2021-11-19 18:00] VITALS: BP 134/57
--- NOTE | 2021-11-19 18:24 | NUR ---
Problems reprioritized. Patient report given, questions answered & plan of care reviewed with TRACEE Sands. Patient stable at transfer of care.
[2021-11-19] MEDS: normal saline 1000ml 1,000 ML IV SCH (19:30)
[2021-11-19] MEDS: pantoprazole 40mg Tablet.DR PO SCH (19:40)
[2021-11-19] MEDS: LORazepam 1 MG tablet PO PRN (19:40)
[2021-11-19 22:00] VITALS: BP 153/74
[2021-11-20 02:00] VITALS: BP 140/77
[2021-11-20 02:44] LABS: HEMOGLOBIN 7.4 g/dl (12.0-16.0); MEAN CORPUSCULAR HEMOGLOBIN 34.4 PG (27.0-31.0); MEAN CORPUSCULAR HGB CONC 34.1 g/dL (33.0-36.5); MEAN CORPUSCULAR VOLUME 100.9 FL (78-98); MEAN PLATELET VOLUME 8.5 FL (7.4-10.4); PLATELET COUNT 57 X10'3 (140-440); RED BLOOD COUNT 2.16 X10'6 (4.20-5.60); RED CELL DISTRIBUTION WIDTH 19.4 % (11.5-14.5)
[2021-11-20 02:55] LABS: ALANINE AMINOTRANSFERASE 30 U/L (12-78); ALBUMIN/GLOBULIN RATIO 0.6 (1.1-1.5); ALKALINE PHOSPHATASE 68 IU/L (46-116); ANION GAP 7 (8-16); ASPARTATE AMINO TRANSFERASE 88 U/L (10-37); BILIRUBIN,TOTAL 2.7 MG/DL (0.1-1.0); BLOOD UREA NITROGEN 19 MG/DL (7-18); CALCIUM 7.2 MG/DL (8.5-10.1); CHLORIDE 105 MMOL/L (99-107); CREATININE 0.73 MG/DL (0.40-0.90); GLUCOSE 144 MG/DL (70-104); LIPASE 222 U/L (73-393); MAGNESIUM 1.3 MG/DL (1.5-2.4); POTASSIUM 3.3 MMOL/L (3.5-5.1); SODIUM 139 MMOL/L (135-145); TOTAL CARBON DIOXIDE 26.9 MMOL/L (24-32); TOTAL PROTEIN 5.4 G/DL (6.4-8.2); eGFR 84 ML/MIN
[2021-11-20 03:00] LABS: HEMATOCRIT 21.8 % (35.0-45.0)
[2021-11-20 07:22] LABS: HEMATOCRIT 22.1 % (35.0-45.0); HEMOGLOBIN 7.4 g/dl (12.0-16.0); MEAN CORPUSCULAR HEMOGLOBIN 33.7 PG (27.0-31.0); MEAN CORPUSCULAR HGB CONC 33.4 g/dL (33.0-36.5); MEAN PLATELET VOLUME 8.4 FL (7.4-10.4); PLATELET COUNT 55 X10'3 (140-440); RED BLOOD COUNT 2.19 X10'6 (4.20-5.60); RED CELL DISTRIBUTION WIDTH 19.6 % (11.5-14.5); WHITE BLOOD COUNT 2.6 X10'3 (4.5-11.0)
[2021-11-20] MEDS: thiamine 100mg tablet PO SCH ×2 (08:00→21:02)
[2021-11-20] MEDS: docusate sod 100mg capsule PO SCH ×3 (08:00→21:02)
[2021-11-20] MEDS: folic acid 1mg tablet PO SCH (08:00)
[2021-11-20] MEDS: thiamine 100mg/ml 2ml inj. IV SCH ×2 (08:00→14:56)
[2021-11-20] MEDS: pantoprazole 40mg Tablet.DR PO SCH ×2 (08:00→20:00)
[2021-11-20] MEDS: K and/or MAG REPLACEMENT MC SCH ×2 (08:00→20:00)
[2021-11-20] MEDS: naltrexone 50mg tablet PO SCH (08:00)
[2021-11-20] MEDS: multivitamins, therapeutics tablet PO SCH (08:00)
[2021-11-20] MEDS: levoFLOXACIN 500mg tablet PO SCH (11:20)
[2021-11-20 11:40] LABS: HEMATOCRIT 22.8 % (35.0-45.0); HEMOGLOBIN 7.6 g/dl (12.0-16.0); MEAN CORPUSCULAR HEMOGLOBIN 33.8 PG (27.0-31.0); MEAN CORPUSCULAR HGB CONC 33.4 g/dL (33.0-36.5); MEAN CORPUSCULAR VOLUME 101.1 FL (78-98); MEAN PLATELET VOLUME 8.2 FL (7.4-10.4); PLATELET COUNT 60 X10'3 (140-440); RED BLOOD COUNT 2.25 X10'6 (4.20-5.60); RED CELL DISTRIBUTION WIDTH 19.9 % (11.5-14.5); WHITE BLOOD COUNT 3.3 X10'3 (4.5-11.0)
[2021-11-20 15:00] VITALS: BP 130/69
[2021-11-20] MEDS: magnesium Cl slow-release 64mg tablet PO PRN (21:02)
[2021-11-20] MEDS: LORazepam 1 MG tablet PO PRN (21:03)
[2021-11-20] MEDS: potassium Cl 20 mEq SR tablet PO PRN (21:03)
[2021-11-20 22:00] VITALS: BP 117/62
[2021-11-21 02:00] VITALS: BP 116/57
[2021-11-21 05:58] LABS: ALANINE AMINOTRANSFERASE 30 U/L (12-78); ALBUMIN 2.2 G/DL (3.4-5.0); ALBUMIN/GLOBULIN RATIO 0.6 (1.1-1.5); ALKALINE PHOSPHATASE 76 IU/L (46-116); ANION GAP 6 (8-16); ASPARTATE AMINO TRANSFERASE 82 U/L (10-37); BILIRUBIN,TOTAL 3.1 MG/DL (0.1-1.0); BLOOD UREA NITROGEN 12 MG/DL (7-18); BUN/CREATININE RATIO 16.2 (6.6-38.0); CALCIUM 7.7 MG/DL (8.5-10.1); CHLORIDE 105 MMOL/L (99-107); CREATININE 0.74 MG/DL (0.40-0.90); GLUCOSE 129 MG/DL (70-104); LIPASE 371 U/L (73-393); MAGNESIUM 1.6 MG/DL (1.5-2.4); POTASSIUM 3.6 MMOL/L (3.5-5.1); SODIUM 138 MMOL/L (135-145); TOTAL CARBON DIOXIDE 27.2 MMOL/L (24-32); eGFR 83 ML/MIN
[2021-11-21 06:00] VITALS: BP 136/82
--- NOTE | 2021-11-21 07:25 | NUR ---
Initial: Pt admitted w/ upper GI bleed with findings of esophagitis, esophageal varices-nonbleeding, gastric ulcer-nonbleeding, gastritis, and duodenitis per EMR. Pt previously on Clear/Full liquid diet w/ 0% intake of 11/19, avg 75% intake of meals on 11/20. Diet just advanced to Heart Healthy last night 11/20, pending PO on solid foods. Recommend liberalizing to Regular diet given no significant cardiac hx in EMR. LBM 11/20 receiving routine colace. Will continue to monitor PO trends and make recommendations as appropriate. Recs: 1. Liberalize to Regular diet 2. Monitor need for ONS pending PO 3. Bowel care per rx 4. Scaled wts Addendum: 11/21/21 at [address] Amended: Links added.
[2021-11-21] MEDS: multivitamins, therapeutics tablet PO SCH (08:14)
[2021-11-21] MEDS: docusate sod 100mg capsule PO SCH (08:14)
[2021-11-21] MEDS: thiamine 100mg tablet PO SCH (08:14)
[2021-11-21] MEDS: naltrexone 50mg tablet PO SCH (08:15)
[2021-11-21] MEDS: pantoprazole 40mg Tablet.DR PO SCH (08:15)
[2021-11-21] MEDS: folic acid 1mg tablet PO SCH (08:15)
[2021-11-21 09:24] LABS: HEMATOCRIT 24.5 % (35.0-45.0); HEMOGLOBIN 8.2 g/dl (12.0-16.0); MEAN CORPUSCULAR HGB CONC 33.5 g/dL (33.0-36.5); MEAN CORPUSCULAR VOLUME 101.5 FL (78-98); MEAN PLATELET VOLUME 8.6 FL (7.4-10.4); PLATELET COUNT 65 X10'3 (140-440); RED BLOOD COUNT 2.41 X10'6 (4.20-5.60); RED CELL DISTRIBUTION WIDTH 19.2 % (11.5-14.5); WHITE BLOOD COUNT 2.8 X10'3 (4.5-11.0)
[2021-11-21 11:00] VITALS: BP 112/63
[2021-11-21] MEDS ORDERED: PANT40TA54 PO (11:13)
[2021-11-21] MEDS ORDERED: LEVO500T90 PO (11:13)
[2021-11-21] MEDS ORDERED: THIA50TA10 PO (11:13)
[2021-11-21] MEDS ORDERED: FOLI0.4T6 PO (11:13)
[2021-11-21] MEDS ORDERED: NALT50TA PO (11:13)
[2021-11-21] MEDS ORDERED: MULT-25 PO (11:13)
[2021-11-21] MEDS ORDERED: LORazepam 1 MG tablet PO PRN (19:35)
== END 2021-11-21 15:00 | disposition home or self-care (01) | DRG 241 ==
LOC: ER 16:46 → ED HOLD 19:33 → PCU 3S 11-18 10:00
PROVIDERS: ADMIT Internal Medicine; ATTEND Family Medicine
PROC: 30233R1 Transfusion of Nonautologous Platelets into Peripheral Vein, Percutaneous Approach (ICD-10-PCS; 2021-11-17)
PROC: 30233N1 Transfusion of Nonautologous Red Blood Cells into Peripheral Vein, Percutaneous Approach (ICD-10-PCS; 2021-11-17)
PROC: 0DB68ZX Excision of Stomach, Via Natural or Artificial Opening Endoscopic, Diagnostic (ICD-10-PCS; principal; 2021-11-18)
DX: K29.71 Gastritis, unspecified, with bleeding (principal); N17.0 Acute kidney failure with tubular necrosis; G93.41 Metabolic encephalopathy; I85.11 Secondary esophageal varices with bleeding; K21.01 Gastro-esophageal reflux disease with esophagitis, with bleeding; K70.30 Alcoholic cirrhosis of liver without ascites; K25.4 Chronic or unspecified gastric ulcer with hemorrhage; K29.81 Duodenitis with bleeding; D68.9 Coagulation defect, unspecified; D62 Acute posthemorrhagic anemia; N39.0 Urinary tract infection, site not specified; B96.20 Unspecified Escherichia coli [E. coli] as the cause of diseases classified elsewhere; E11.9 Type 2 diabetes mellitus without complications; K21.00 Gastro-esophageal reflux disease with esophagitis, without bleeding; D69.6 Thrombocytopenia, unspecified; F32.A Depression, unspecified; R01.1 Cardiac murmur, unspecified; E03.9 Hypothyroidism, unspecified; E78.00 Pure hypercholesterolemia, unspecified; E87.6 Hypokalemia; F10.20 Alcohol dependence, uncomplicated; I10 Essential (primary) hypertension; Z88.2 Allergy status to sulfonamides; Z79.899 Other long term (current) drug therapy
CPT/HCPCS: 36415; 36430; 43239; 76700; 80053; 80305; 80320; 81001; 81025; 82103; 82272; 83036; 83690; 83735; 84484; 85025; 85027; 85610; 86885; 86900; 86901; 86920; 87077; 87081; 87088; 87186; 93005; 93306; 96361; 96374; 96375; 97116; 97161; 97530; 99152; 99285; A4620; C9113; G0378; J1200; J2250; J2354; J2405; J3010; J3411; J3480; J3490; J7030; J7040; J7050; P9016; P9035

== ENCOUNTER 2022-02-11 07:33 | Inpatient (IN) | payer MEDICAID ==
[~2022-02-11] VITALS: Ht 172.7 cm; Wt 111.8 kg
[~2022-02-11 07:33] MED LIST changes: +ALBU8HFA IH; -CLON-528 PO; -LEVO25TA7 PO; +LEVO500T90 PO; +MULT-25 PO; +NALT50TA PO; +PANT40TA54 PO; +THIA50TA10 PO
[2022-02-11] MEDS ORDERED: furosemide 10 MG/1 ML 10ml inj IV ONE (08:40)
[2022-02-11 09:04] LABS: BASOPHILS % (AUTO) 0.8 % (0-1); EOSINOPHILS % (AUTO) 2.1 % (0-6); HEMATOCRIT 25.7 % (35.0-45.0); HEMOGLOBIN 7.9 g/dl (12.0-16.0); LYMPHOCYTES # (AUTO) 0.4 X10'3 (1.1-4.8); LYMPHOCYTES % (AUTO) 19.3 % (21-51); MEAN CORPUSCULAR HGB CONC 30.8 g/dL (33.0-36.5); MEAN CORPUSCULAR VOLUME 81.4 FL (78-98); MEAN PLATELET VOLUME 8.4 FL (7.4-10.4); MONOCYTES # (AUTO) 0.2 X10'3 (0-0.9); MONOCYTES % (AUTO) 9.8 % (2-12); NEUTROPHILS # (AUTO) 1.3 X10'3 (1.8-7.7); RED BLOOD COUNT 3.15 X10'6 (4.20-5.60); WHITE BLOOD COUNT 1.9 X10'3 (4.5-11.0)
[2022-02-11 09:13] LABS: ALANINE AMINOTRANSFERASE 25 U/L (12-78); ALBUMIN 2.7 G/DL (3.4-5.0); ALKALINE PHOSPHATASE 82 IU/L (46-116); ANION GAP 9 (8-16); ASPARTATE AMINO TRANSFERASE 102 U/L (10-37); BILIRUBIN,TOTAL 4.3 MG/DL (0.1-1.0); BLOOD UREA NITROGEN 6 MG/DL (7-18); BUN/CREATININE RATIO 7.1 (6.6-38.0); CHLORIDE 102 MMOL/L (99-107); CREATININE 0.85 MG/DL (0.40-0.90); GLUCOSE 137 MG/DL (70-104); POTASSIUM 3.1 MMOL/L (3.5-5.1); SODIUM 137 MMOL/L (135-145); TOTAL CARBON DIOXIDE 26.3 MMOL/L (24-32); eGFR 71 ML/MIN
[2022-02-11 09:20] LABS: AMYLASE 45 U/L (25-115); LIPASE 215 U/L (73-393)
[2022-02-11 09:21] LABS: ALBUMIN/GLOBULIN RATIO 0.5 (1.1-1.5); TOTAL PROTEIN 8.1 G/DL (6.4-8.2)
[2022-02-11 09:22] LABS: PLATELET COUNT 36 X10'3 (140-440)
--- NOTE | 2022-02-11 09:50 | NUR ---
gastrointestinal technician at bedside. Pt in no apparent distress, no needs at this time.
[2022-02-11] MEDS ORDERED: bisacodyl 10mg suppository rectal RC PRN (10:25)
[2022-02-11] MEDS ORDERED: LORazepam 1 MG tablet PO PRN (10:25)
[2022-02-11] MEDS ORDERED: mag hydrox/Alum hydrox/simeth 30ml oral suspension PO PRN (10:25)
[2022-02-11] MEDS ORDERED: acetaminophen 650mg rectal suppository RC PRN (10:25)
[2022-02-11] MEDS ORDERED: haloperidol lactate 5mg/ml inj IM PRN (10:25)
[2022-02-11] MEDS ORDERED: magnesium hydroxide 30ml (MOM) UD suspension PO PRN (10:25)
[2022-02-11] MEDS ORDERED: magnesium Cl slow-release 64mg tablet PO PRN (10:25)
[2022-02-11] MEDS ORDERED: LORazepam 2 mg/ml vial IV PRN (10:25)
[2022-02-11] MEDS ORDERED: magnesium 2GM in 50ml NS 50 ML IV PRN (10:25)
[2022-02-11] MEDS ORDERED: ondansetron/PF 4mg/2ml inj IV PRN (10:25)
[2022-02-11] MEDS ORDERED: HYDROcodone/acetaminophen 5mg/325mg tablet PO PRN (10:25)
[2022-02-11] MEDS ORDERED: acetaminophen 325mg tablet PO PRN ×2 (10:25)
[2022-02-11] MEDS ORDERED: metoclopramide 5 mg/ml inj IV PRN (10:25)
[2022-02-11] MEDS ORDERED: haloperidol 5mg tablet PO PRN (10:25)
[2022-02-11] MEDS ORDERED: magnesium 4gm in 100ml NS 100 ML IV PRN (10:25)
[2022-02-11] MEDS ORDERED: HYDROcodone/acetaminophen 10/325mg tab PO PRN (10:25)
[2022-02-11 10:28] LABS: D-DIMER 5.15 MG/L FEU (0-0.50)
[2022-02-11 10:34] LABS: COLOR,URINE YELLOW (Yellow); GLUCOSE, URINE NEGATIVE (Neg); KETONES,URINE NEGATIVE (Neg); LEUKOCYTE ESTERASE ,URINE NEGATIVE (Neg); NITRITES, URINE NEGATIVE (Neg); OCCULT BLOOD,URINE TRACE-INTACT (Neg); PH,URINE 6.5 (4.8-8.0); PROTEIN,URINE NEGATIVE (Neg); UROBILINOGEN,URINE 0.2 E.U/dL (0.2-1.0)
[2022-02-11 10:40] LABS: UA COLLECTION TYPE CLN CATCH MIDSTREAM
[2022-02-11 10:41] LABS: CLARITY,URINE SLIGHTLY CLOUDY (Clear)
[2022-02-11 10:49] LABS: BACTERIA,URINE FEW /HPF (Neg); MUCUS STRANDS FEW /LPF (Neg); RBC,URINE 0-2 /HPF (0-2); SQUAMOUS EPITHELIAL CELL,UR MODERATE /LPF (FEW); WBC,URINE 0-4 /HPF (0-4)
[2022-02-11 10:50] LABS: HYALINE CASTS 0-3 /LPF (NEGATIVE); TRANSITIONAL EPI CELLS,URINE FEW /HPF
[2022-02-11 11:10] LABS: MAGNESIUM 1.2 MG/DL (1.5-2.4)
[2022-02-11] MEDS ORDERED: MULT-1085 PO (11:36)
[2022-02-11] MEDS ORDERED: ALBU8.5H17 INH (11:36)
[2022-02-11] MEDS ORDERED: NALT50TA PO (11:36)
[2022-02-11] MEDS ORDERED: ATEN50TA8 PO (11:36)
[2022-02-11] MEDS ORDERED: THIA100T70 PO (11:36)
[2022-02-11] MEDS ORDERED: PANT-47 PO (11:36)
--- NOTE | 2022-02-11 12:02 | NUR ---
Pt up to bedside commode. 700ml out, 900ml previously. Will total for I&O.
[2022-02-11] MEDS ORDERED: albuterol 2.5 MG/3 ML nebule NEB PRN (12:05)
[2022-02-11 13:04] LABS: TOTAL CELLS COUNTED 100
[2022-02-11 13:05] LABS: ANISOCYTOSIS 3+; ELLIPTOCYTES FEW; PLATELET ESTIMATE DECREASED; POLYCHROMASIA FEW; TARGET CELLS FEW
--- NOTE | 2022-02-11 14:06 | NUR ---
Pt's HR on the monitor is 120s. Consistently shows 1 PVC every 4-5 beats on the monitor. Pt has no symptoms, denies CP/SOB at this time.
--- NOTE | 2022-02-11 14:10 | NUR ---
K+ 3.1, Magnesium 1.2 per labs. Will notify
--- NOTE | 2022-02-11 14:15 | NUR ---
Dr Mynor oconnor. Spoke to him regarding pt's heart rate with PVCs. Gave verbal order to give Atenolol now since pt missed morning dose. Started Magnesium and Potassium replacement protocols as well. Pt alert, no apparent distress or needs at this time.
--- NOTE | 2022-02-11 14:16 | NUR ---
Pt has had 2000ml output of urine total up to this point
--- NOTE | 2022-02-11 14:19 | NUR ---
50% of lunch consumed. Tray removed.
[2022-02-11] MEDS ORDERED: magnesium 2GM in 50ml NS 50 ML IV ONE (14:25)
[2022-02-11] MEDS: potassium Cl 20 mEq SR tablet PO PRN ×3 (14:37→23:17)
[2022-02-11] MEDS: atenolol 50mg tablet PO SCH ×2 (14:37→19:44)
--- NOTE | 2022-02-11 15:30 | NUR ---
IV positional. Added blanket under pt's arm and applied traction tape to RAC IV. Will continue to monitor.
--- NOTE | 2022-02-11 16:51 | NUR ---
Magnesium gtt almost done, pt alert and oriented, no apparent distress or needs at this time.
--- NOTE | 2022-02-11 17:55 | NUR ---
Pt alert and oriented, no apparent distress or needs at this time. Still c/o pain R lower abdomen, but thinks that she overall feels much better.
--- NOTE | 2022-02-11 18:00 | NUR ---
Intake 70ml IV + 200ml PO (270 total intake), 2600ml total output (UA)
--- NOTE | 2022-02-11 18:30 | NUR ---
ASSUMED CARE OF PT. PT TALKING ON THE PHONE WHEN I ENTERED ROOM. SHE DENIES ANY ANXIETY, SOB OR PAIN AT PRESENT. STATES THAT HER LAST ALCOHOLIC BEVERAGE WAS TWO WEEKS AGO. DOES NOT BELIEVE SHE IS WITHRAWING. PT WILL HAVE K+ REPLACED PO PER PROTOCOL.
--- NOTE | 2022-02-11 19:01 | NUR ---
PT NOW HAS AN ASSIGNED ROOM. CALLED AND GAVE REPORT TO FLOOR RN. RN AWARE OF PT'S TACHYCARDIA.
[2022-02-11 19:36] VITALS: BP 128/77
[2022-02-11] MEDS: furosemide 40mg/4ml inj IV SCH (19:43)
[2022-02-11] MEDS: magnesium Cl slow-release 64mg tablet PO SCH (19:44)
[2022-02-11] MEDS: docusate sod 100mg capsule PO SCH (19:44)
[2022-02-11] MEDS: K and/or MAG REPLACEMENT MC SCH (19:51)
[2022-02-11] MEDS ORDERED: temazepam 15mg capsule PO PRN (21:00)
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
[2022-02-11 22:00] VITALS: BP 115/66
[2022-02-12 02:00] VITALS: BP 111/67
[2022-02-12 06:00] VITALS: BP 119/76
[2022-02-12 07:02] LABS: BASOPHILS % (AUTO) 0.6 % (0-1); EOSINOPHILS # (AUTO) 0.1 X10'3 (0-0.9); EOSINOPHILS % (AUTO) 2.3 % (0-6); HEMATOCRIT 24.1 % (35.0-45.0); HEMOGLOBIN 7.5 g/dl (12.0-16.0); LYMPHOCYTES # (AUTO) 0.7 X10'3 (1.1-4.8); LYMPHOCYTES % (AUTO) 28.9 % (21-51); MEAN CORPUSCULAR HEMOGLOBIN 25.3 PG (27.0-31.0); MEAN CORPUSCULAR HGB CONC 31.3 g/dL (33.0-36.5); MEAN PLATELET VOLUME 8.4 FL (7.4-10.4); MONOCYTES # (AUTO) 0.2 X10'3 (0-0.9); MONOCYTES % (AUTO) 9.6 % (2-12); NEUTROPHILS # (AUTO) 1.4 X10'3 (1.8-7.7); NEUTROPHILS % (AUTO) 58.6 % (42-75); RED BLOOD COUNT 2.98 X10'6 (4.20-5.60); RED CELL DISTRIBUTION WIDTH 24.6 % (11.5-14.5); WHITE BLOOD COUNT 2.3 X10'3 (4.5-11.0)
[2022-02-12 07:05] LABS: APTT 34 SECONDS (22-32)
[2022-02-12 07:06] LABS: PLATELET COUNT 38 X10'3 (140-440)
[2022-02-12 07:19] LABS: ALANINE AMINOTRANSFERASE 20 U/L (12-78); ALBUMIN 2.3 G/DL (3.4-5.0); ALKALINE PHOSPHATASE 68 IU/L (46-116); ANION GAP 5 (8-16); ASPARTATE AMINO TRANSFERASE 78 U/L (10-37); BILIRUBIN,TOTAL 3.8 MG/DL (0.1-1.0); BLOOD UREA NITROGEN 7 MG/DL (7-18); BUN/CREATININE RATIO 8.5 (6.6-38.0); CALCIUM 7.4 MG/DL (8.5-10.1); CHLORIDE 104 MMOL/L (99-107); CREATININE 0.82 MG/DL (0.40-0.90); SODIUM 142 MMOL/L (135-145); TOTAL CARBON DIOXIDE 32.8 MMOL/L (24-32); eGFR 73 ML/MIN
[2022-02-12 07:32] LABS: GLUCOSE 109 MG/DL (70-104)
[2022-02-12 07:38] LABS: ALBUMIN/GLOBULIN RATIO 0.5 (1.1-1.5); PHOSPHORUS 3.7 MG/DL (2.3-4.5); TOTAL PROTEIN 7.1 G/DL (6.4-8.2)
[2022-02-12 07:57] LABS: MAGNESIUM 0.9 MG/DL (1.5-2.4); POTASSIUM 2.7 MMOL/L (3.5-5.1)
[2022-02-12] MEDS ORDERED: multivitamins, therapeutics tablet PO SCH (08:00)
[2022-02-12] MEDS: folic acid 1mg/0.2ml inj IV SCH (08:00)
[2022-02-12] MEDS ORDERED: thiamine 100mg tablet PO SCH (08:00)
[2022-02-12] MEDS: K and/or MAG REPLACEMENT MC SCH ×2 (08:00→20:00)
[2022-02-12] MEDS: multivitamins, therapeutics tablet PO SCH (08:23)
[2022-02-12] MEDS: docusate sod 100mg capsule PO SCH ×2 (08:23→20:44)
[2022-02-12] MEDS: magnesium Cl slow-release 64mg tablet PO SCH (08:23)
[2022-02-12] MEDS: pantoprazole 40mg Tablet.DR PO SCH (08:24)
[2022-02-12] MEDS: atenolol 50mg tablet PO SCH ×2 (08:24→20:44)
[2022-02-12] MEDS: potassium Cl 20 mEq SR tablet PO PRN ×2 (08:24→16:10)
[2022-02-12] MEDS: furosemide 40mg/4ml inj IV SCH ×2 (08:25→20:45)
[2022-02-12] MEDS: potassium CL 10mEq/100ml bag 100 ML IV PRN ×5 (08:26→16:13)
[2022-02-12] MEDS: naltrexone 50mg tablet PO SCH (09:05)
[2022-02-12 11:00] VITALS: BP 113/68
[2022-02-12 14:12] LABS: MAGNESIUM 1.9 MG/DL (1.5-2.4)
[2022-02-12 14:33] LABS: POTASSIUM 2.8 MMOL/L (3.5-5.1)
--- NOTE | 2022-02-12 14:34 | NUR ---
CRITICAL LAB VALUE TAKEN REPORTED TO PRIMARY RN.
[2022-02-12 15:00] VITALS: BP 99/64
[2022-02-12] MEDS: magnesium oxide 400mg tablet PO SCH (16:13)
[2022-02-12] MEDS: potassium Cl 20 mEq SR tablet PO SCH ×2 (17:52→20:43)
[2022-02-12 18:00] VITALS: BP 107/71
[2022-02-12] MEDS: ondansetron 4mg rapidly disintigrating tab PO PRN (18:30)
[2022-02-12] MEDS: albuterol 2.5 MG/3 ML nebule NEB PRN (20:57)
[2022-02-12 22:00] VITALS: BP 102/64
[2022-02-13] MEDS: magnesium oxide 400mg tablet PO SCH ×3 (00:48→16:09)
[2022-02-13 02:00] VITALS: BP 111/73
[2022-02-13 06:00] VITALS: BP 105/78
[2022-02-13 06:25] LABS: APTT 34 SECONDS (22-32); BASOPHILS % (AUTO) 0.3 % (0-1); EOSINOPHILS # (AUTO) 0.1 X10'3 (0-0.9); HEMATOCRIT 25.4 % (35.0-45.0); LYMPHOCYTES # (AUTO) 0.9 X10'3 (1.1-4.8); LYMPHOCYTES % (AUTO) 29.3 % (21-51); MEAN CORPUSCULAR HEMOGLOBIN 25.7 PG (27.0-31.0); MEAN CORPUSCULAR HGB CONC 31.5 g/dL (33.0-36.5); MEAN CORPUSCULAR VOLUME 81.6 FL (78-98); MEAN PLATELET VOLUME 8.1 FL (7.4-10.4); MONOCYTES # (AUTO) 0.3 X10'3 (0-0.9); MONOCYTES % (AUTO) 10.7 % (2-12); NEUTROPHILS # (AUTO) 1.6 X10'3 (1.8-7.7); NEUTROPHILS % (AUTO) 54.7 % (42-75); PLATELET COUNT 51 X10'3 (140-440); RED BLOOD COUNT 3.12 X10'6 (4.20-5.60)
[2022-02-13 06:28] LABS: ALANINE AMINOTRANSFERASE 19 U/L (12-78); ALBUMIN 2.4 G/DL (3.4-5.0); ALKALINE PHOSPHATASE 73 IU/L (46-116); ANION GAP 3 (8-16); ASPARTATE AMINO TRANSFERASE 70 U/L (10-37); BILIRUBIN,TOTAL 3.7 MG/DL (0.1-1.0); BLOOD UREA NITROGEN 9 MG/DL (7-18); BUN/CREATININE RATIO 9.9 (6.6-38.0); CALCIUM 7.4 MG/DL (8.5-10.1); CHLORIDE 103 MMOL/L (99-107); CREATININE 0.91 MG/DL (0.40-0.90); MAGNESIUM 1.5 MG/DL (1.5-2.4); POTASSIUM 3.5 MMOL/L (3.5-5.1); SODIUM 140 MMOL/L (135-145); TOTAL CARBON DIOXIDE 33.6 MMOL/L (24-32); eGFR 65 ML/MIN
[2022-02-13 06:39] LABS: ALBUMIN/GLOBULIN RATIO 0.5 (1.1-1.5); GLUCOSE 94 MG/DL (70-104); PHOSPHORUS 3.6 MG/DL (2.3-4.5); TOTAL PROTEIN 7.5 G/DL (6.4-8.2)
[2022-02-13 07:07] LABS: ANISOCYTOSIS 3+; PLATELET ESTIMATE DECREASED; TEAR DROP CELLS 1+; TOTAL CELLS COUNTED 100
[2022-02-13 07:08] LABS: ELLIPTOCYTES FEW; HYPOCHROMASIA 1+; POLYCHROMASIA FEW; TARGET CELLS FEW
[2022-02-13 07:09] LABS: ACANTHOCYTES FEW
[2022-02-13] MEDS: K and/or MAG REPLACEMENT MC SCH ×2 (08:00→20:00)
[2022-02-13] MEDS: atenolol 50mg tablet PO SCH ×2 (08:41→21:53)
[2022-02-13] MEDS: multivitamins, therapeutics tablet PO SCH (08:41)
[2022-02-13] MEDS: docusate sod 100mg capsule PO SCH ×2 (08:41→21:54)
[2022-02-13] MEDS: furosemide 40mg/4ml inj IV SCH ×2 (08:42→21:53)
[2022-02-13] MEDS: naltrexone 50mg tablet PO SCH (08:42)
[2022-02-13] MEDS: pantoprazole 40mg Tablet.DR PO SCH (08:42)
[2022-02-13] MEDS: folic acid 1mg/0.2ml inj IV SCH (08:43)
[2022-02-13] MEDS: potassium Cl 20 mEq SR tablet PO SCH (08:55)
[2022-02-13] MEDS: albuterol 2.5 MG/3 ML nebule NEB PRN (10:22)
[2022-02-13 11:00] VITALS: BP 107/71
[2022-02-13 15:00] VITALS: BP 97/62
[2022-02-13] MEDS: ondansetron 4mg rapidly disintigrating tab PO PRN (21:53)
[2022-02-13 22:00] VITALS: BP 101/71
[2022-02-14 02:00] VITALS: BP 104/64
[2022-02-14 06:00] LABS: BASOPHILS % (AUTO) 1.1 % (0-1); EOSINOPHILS # (AUTO) 0.1 X10'3 (0-0.9); EOSINOPHILS % (AUTO) 3.1 % (0-6); HEMATOCRIT 23.2 % (35.0-45.0); HEMOGLOBIN 7.3 g/dl (12.0-16.0); LYMPHOCYTES # (AUTO) 0.7 X10'3 (1.1-4.8); LYMPHOCYTES % (AUTO) 32.8 % (21-51); MEAN CORPUSCULAR HEMOGLOBIN 25.5 PG (27.0-31.0); MEAN CORPUSCULAR HGB CONC 31.3 g/dL (33.0-36.5); MEAN CORPUSCULAR VOLUME 81.3 FL (78-98); MEAN PLATELET VOLUME 8.2 FL (7.4-10.4); MONOCYTES # (AUTO) 0.3 X10'3 (0-0.9); MONOCYTES % (AUTO) 14.7 % (2-12); NEUTROPHILS % (AUTO) 48.3 % (42-75); RED BLOOD COUNT 2.85 X10'6 (4.20-5.60); RED CELL DISTRIBUTION WIDTH 24.2 % (11.5-14.5)
[2022-02-14 06:07] LABS: APTT 35 SECONDS (22-32)
[2022-02-14 06:13] LABS: PLATELET COUNT 44 X10'3 (140-440)
[2022-02-14 06:19] LABS: ALANINE AMINOTRANSFERASE 17 U/L (12-78); ALBUMIN/GLOBULIN RATIO 0.5 (1.1-1.5); ALKALINE PHOSPHATASE 63 IU/L (46-116); ANION GAP 9 (8-16); ASPARTATE AMINO TRANSFERASE 45 U/L (10-37); BILIRUBIN,TOTAL 3.1 MG/DL (0.1-1.0); BLOOD UREA NITROGEN 10 MG/DL (7-18); BUN/CREATININE RATIO 12.2 (6.6-38.0); CALCIUM 7.2 MG/DL (8.5-10.1); CHLORIDE 100 MMOL/L (99-107); CREATININE 0.82 MG/DL (0.40-0.90); GLUCOSE 101 MG/DL (70-104); MAGNESIUM 1.4 MG/DL (1.5-2.4); PHOSPHORUS 3.3 MG/DL (2.3-4.5); POTASSIUM 3.1 MMOL/L (3.5-5.1); SODIUM 138 MMOL/L (135-145); TOTAL CARBON DIOXIDE 29.2 MMOL/L (24-32); TOTAL PROTEIN 6.3 G/DL (6.4-8.2); eGFR 73 ML/MIN
[2022-02-14 06:30] VITALS: BP 115/73
[2022-02-14 06:44] LABS: TOTAL CELLS COUNTED 100
[2022-02-14 06:45] LABS: ACANTHOCYTES FEW; ANISOCYTOSIS 3+; PLATELET ESTIMATE DECREASED
[2022-02-14 09:31] VITALS: BP 107/77
[2022-02-14] MEDS: magnesium oxide 400mg tablet PO SCH ×2 (09:35)
[2022-02-14] MEDS: docusate sod 100mg capsule PO SCH (09:35)
[2022-02-14] MEDS: multivitamins, therapeutics tablet PO SCH (09:35)
[2022-02-14] MEDS: atenolol 50mg tablet PO SCH (09:35)
[2022-02-14] MEDS: naltrexone 50mg tablet PO SCH (09:35)
[2022-02-14] MEDS: pantoprazole 40mg Tablet.DR PO SCH (09:35)
[2022-02-14] MEDS: potassium Cl 20 mEq SR tablet PO SCH (09:36)
[2022-02-14] MEDS: furosemide 40mg/4ml inj IV SCH (09:36)
[2022-02-14] MEDS: folic acid 1mg/0.2ml inj IV SCH (09:44)
[2022-02-14] MEDS ORDERED: magnesium 2GM in 50ml NS 50 ML IV PRN (10:30)
[2022-02-14] MEDS ORDERED: magnesium 4gm in 100ml NS 100 ML IV PRN (10:30)
[2022-02-14 11:00] VITALS: BP 112/78
[2022-02-14] MEDS ORDERED: potassium Cl 20 mEq SR tablet PO STA ×2 (11:00→13:07)
[2022-02-14] MEDS ORDERED: FURO-149 PO (11:02)
[2022-02-14] MEDS ORDERED: POTA-207 PO (11:03)
--- NOTE | 2022-02-14 11:48 | NUR ---
Provider notification:PAGER ID: [phone] MESSAGE: Verona Melgar Room 3022/ Pt said she has not spoke with a doctor regarding her diagnosis. She does not know what is going on. She would like to speak with a doctor before leaving regarding her diagnosis. TRACEE Rhoades
[2022-02-16] MEDS ORDERED: thiamine 100mg tablet PO SCH (08:00)
[2022-02-16] MEDS ORDERED: folic acid 1mg tablet PO SCH (08:00)
== END 2022-02-14 14:15 | disposition home health service (06) | DRG 194 ==
LOC: ER 07:34 → ED HOLD 10:28 → PCU 3S 18:45
PROVIDERS: ADMIT Family Medicine; ATTEND Family Medicine
DX: I11.0 Hypertensive heart disease with heart failure (principal); D61.818 Other pancytopenia; K72.10 Chronic hepatic failure without coma; E88.09 Other disorders of plasma-protein metabolism, not elsewhere classified; I50.33 Acute on chronic diastolic (congestive) heart failure; K70.10 Alcoholic hepatitis without ascites; K70.30 Alcoholic cirrhosis of liver without ascites; E03.9 Hypothyroidism, unspecified; R00.0 Tachycardia, unspecified; F10.20 Alcohol dependence, uncomplicated; E11.9 Type 2 diabetes mellitus without complications; E78.00 Pure hypercholesterolemia, unspecified; E87.6 Hypokalemia; Z87.11 Personal history of peptic ulcer disease; Z79.899 Other long term (current) drug therapy; Z88.2 Allergy status to sulfonamides
CPT/HCPCS: 36415; 71045; 80053; 81001; 82150; 83690; 83735; 83880; 84100; 84132; 84439; 84443; 84484; 85007; 85025; 85379; 85610; 85730; 87081; 93005; 93306; 94640; 94760; 96374; 97110; 97116; 97161; 99285; G0378; J1940; J3475; J3480; J3490

== ENCOUNTER 2024-07-14 13:14 | Outpatient (CLI) | payer MEDICAID ==
[~2024-07-14 13:14] MED LIST changes: +ALBU8.5H17 INH; -ALBU8HFA IH; -ATEN-169 PO; +ATEN50TA8 PO; +FURO-149 PO; -LEVO500T90 PO; +MULT-1085 PO; -MULT-25 PO; -NALT50TA PO; +NALT50TA5 PO; +PANT-47 PO; -PANT40TA54 PO; +THIA100T70 PO; -THIA50TA10 PO
== END 2024-07-14 23:59 | disposition home or self-care (01) ==
LOC: 64 CT 13:14
PROVIDERS: ATTEND Podiatrist Foot & Ankle Surgery
DX: S92.901K Unspecified fracture of right foot, subsequent encounter for fracture with nonunion (principal); S82.891K Other fracture of right lower leg, subsequent encounter for closed fracture with nonunion; M20.11 Hallux valgus (acquired), right foot; M79.671 Pain in right foot; M96.0 Pseudarthrosis after fusion or arthrodesis; M79.672 Pain in left foot; M19.071 Primary osteoarthritis, right ankle and foot; M25.471 Effusion, right ankle; M21.41 Flat foot [pes planus] (acquired), right foot; X58.XXXD Exposure to other specified factors, subsequent encounter
CPT/HCPCS: 73700

== ENCOUNTER 2024-10-20 00:40 | Emergency (ER) | payer MEDICAID ==
[~2024-10-20] VITALS: Ht 172.7 cm; Wt 90.0 kg
[2024-10-20 02:18] LABS: BASOPHILS % (AUTO) 0.1 % (0-1); EOSINOPHILS % (AUTO) 0 % (0-6); HEMOGLOBIN 9.5 g/dl (12.0-16.0); LYMPHOCYTES # (AUTO) 0.3 X10'3 (1.1-4.8); LYMPHOCYTES % (AUTO) 5.9 % (21-51); MEAN CORPUSCULAR HEMOGLOBIN 29.2 PG (27.0-31.0); MEAN CORPUSCULAR HGB CONC 33.7 g/dL (33.0-36.5); MEAN CORPUSCULAR VOLUME 86.7 FL (78-98); MEAN PLATELET VOLUME 7.5 FL (7.4-10.4); MONOCYTES # (AUTO) 0.3 X10'3 (0-0.9); MONOCYTES % (AUTO) 6.3 % (2-12); NEUTROPHILS # (AUTO) 3.8 X10'3 (1.8-7.7); NEUTROPHILS % (AUTO) 87.7 % (42-75); PLATELET COUNT 65 X10'3 (140-440); RED BLOOD COUNT 3.23 X10'6 (4.20-5.60); RED CELL DISTRIBUTION WIDTH 17.8 % (11.5-14.5); WHITE BLOOD COUNT 4.4 X10'3 (4.5-11.0)
[2024-10-20 02:28] LABS: ALBUMIN 2.7 G/DL (3.4-5.0); ANION GAP 8 (8-16); BLOOD UREA NITROGEN 15 MG/DL (7-18); BUN/CREATININE RATIO 18.3 (10.0-20.0); CALCIUM 7.8 MG/DL (8.5-10.1); CHLORIDE 100 MMOL/L (99-107); CREATININE 0.82 MG/DL (0.40-0.90); GLUCOSE 219 MG/DL (70-104); POTASSIUM 3.9 MMOL/L (3.5-5.1); SODIUM 135 MMOL/L (135-145); TOTAL CARBON DIOXIDE 26.8 MMOL/L (24-32); eCRCL 79 ML/MIN; eGFR 73 ML/MIN
[2024-10-20 03:06] VITALS: TEMP 99.6
[2024-10-20 04:09] VITALS: BP 143/77; PULSE 70; RESP 16; O2SAT 98
== END 2024-10-20 04:35 | disposition home or self-care (01) ==
LOC: ER 00:41
DX: M96.831 Postprocedural hemorrhage of a musculoskeletal structure following other procedure (principal); E78.00 Pure hypercholesterolemia, unspecified; E11.9 Type 2 diabetes mellitus without complications; E03.9 Hypothyroidism, unspecified; I10 Essential (primary) hypertension; Z88.2 Allergy status to sulfonamides; Z79.899 Other long term (current) drug therapy; Z87.440 Personal history of urinary (tract) infections
CPT/HCPCS: 29515; 80048; 84145; 85025; 99283; A6253; A6446; A6449

== ENCOUNTER 2025-02-08 13:13 | Outpatient (CLI) | payer MEDICAID | END 2025-02-08 23:59 | disposition home or self-care (01) | LOC: 64 CT 13:13 | PROVIDERS: ATTEND Podiatrist Foot & Ankle Surgery | DX: S92.909K Unspecified fracture of unspecified foot, subsequent encounter for fracture with nonunion (principal); M79.671 Pain in right foot; S82.899K Other fracture of unspecified lower leg, subsequent encounter for closed fracture with nonunion; M20.11 Hallux valgus (acquired), right foot; X58.XXXD Exposure to other specified factors, subsequent encounter; M96.0 Pseudarthrosis after fusion or arthrodesis; M79.672 Pain in left foot; M19.071 Primary osteoarthritis, right ankle and foot; M19.072 Primary osteoarthritis, left ankle and foot; M77.31 Calcaneal spur, right foot | CPT/HCPCS: 73700 ==